=== PATIENT | male | born 1985 | race Caucasian/White ===

== ENCOUNTER 2016-06-08 07:13 | Emergency (ER) | payer SELFPAY ==
[2016-06-08 07:35] VITALS: BP 120/66
--- NOTE | 2016-06-08 08:07 | UC ---
Respiratory Complaint HPI - HPI Summary HPI Summary: 4 DAYS OF SUBJECTIVE FEVER, CHILLS, SWEATS, NASAL CONGESTION, COUGH. FEELS COMPLETELY RUN DOWN. NO FLU SHOT THIS SEASON. IS A SMOKER. TOOK DAYQUIL THIS MORNING. - History of Current Complaint Chief Complaint: UCGeneralIllness Stated Complaint: SORE THROAT FEVER SINUS ISSUE Time Seen by Provider: 06/08/16 07:49 Hx Obtained From: Patient Onset/Duration: Gradual Onset, Lasting Days, Still Present Timing: Constant Severity Initially: Moderate Severity Currently: Moderate Pain Intensity: 5 Pain Scale Used: 0-10 Numeric Character: Cough: Nonproductive Aggravating Factors: Nothing Alleviating Factors: Nothing Associated Signs And Symptoms: Positive: Fever, Chills, Nasal Congestion. Negative: Pleuritic Chest Pain, Wheezing, Hemoptysis, Hoarseness, Sinus Discomfort - Allergies/Home Medications Allergies/Adverse Reactions: Allergies Allergy/AdvReac Type Severity Reaction Status Date / Time No Known Allergies Allergy Verified 03/22/13 16:21 Home Medications: Home Medications Dextromethorphan HBr [Vicks Dayquil Cough] 06/08/16 [History] PMH/Surg Hx/FS Hx/Imm Hx Previously Healthy: Yes - Surgical History Surgical History: None - Family History Known Family History: Positive: Diabetes - Social History Alcohol Use: Occasionally Substance Use Type: None Smoking Status (MU): Current Every Day Smoker Review of Systems Constitutional: Fever, Chills, Fatigue ENT: Sore Throat, Nasal Discharge Respiratory: Cough Cardiovascular: Negative Gastrointestinal: Negative Musculoskeletal: Myalgia Neurological: Headache All Other Systems Reviewed And Are Negative: Yes Physical Exam Triage Information Reviewed: Yes Appearance: No Pain Distress, Well-Nourished, Ill-Appearing - MILDLY Vital Signs: Initial Vital Signs Temp 99.2 F 06/08/16 07:31 Pulse 83 06/08/16 07:31 Resp 18 06/08/16 07:31 BP 120/66 06/08/16 07:31 Pulse Ox 97 06/08/16 07:31 Vital Signs Reviewed: Yes Eyes: Positive: Conjunctiva Clear ENT: Positive: Hearing grossly normal, Pharynx normal, TMs normal Neck: Positive: Supple, Nontender, No Lymphadenopathy Respiratory Exam: Normal Cardiovascular Exam: Normal Abdomen Description: Positive: Soft Musculoskeletal: Positive: No Edema Neurological: Positive: Alert Psychological: Positive: Age Appropriate Behavior Skin: Negative: rashes UC Diagnostic Evaluation - Laboratory O2 Sat by Pulse Oximetry: 97 Diagnostic Studies Comment: RAPID FLU NEGATIVE Respiratory Course/Dx - Differential Dx/Diagnosis Provider Diagnoses: ACUTE VIRAL SYNDROME Discharge - Discharge Plan Condition: Stable Disposition: HOME Patient Education Materials: Viral Syndrome (ED) Forms: *Work Release Referrals: No Primary Care Phys,NOPCP [Primary Care Provider] - Additional Instructions: FLU TEST NEGATIVE. LIKELY A VIRAL INFECTION BUT GIVEN YOUR SYMPTOMS ARE WORSENING AND YOUR FEVER HAS BEEN PERSISTENT WILL COVER FOR BACTERIAL INFECTION WITH ANTIBIOTICS. TRY OTC AFRIN FOR NASAL CONGESTION. OKAY TO USE 2-3 SPRAYS IN EACH NOSTRIL UP TO 2 TIMES DAILY. DO NOT USE FOR MORE THAN 3-4 CONSECUTIVE DAYS TO PREVENT DEVELOPING REBOUND CONGESTION. CALL THE NUMBER BELOW FOR ASSISTANCE IN ESTABLISHING WITH A PCP An additional resource available to assist in finding the appropriate physician for your health care needs is the [facility] ([facility]). You may contact them by calling [phone].
== END 2016-06-08 08:50 | disposition home or self-care (01) ==
LOC: UCEAST 07:13
DX: B34.9 Viral infection, unspecified (principal); F17.210 Nicotine dependence, cigarettes, uncomplicated
CPT/HCPCS: 87502; 99211; G0463

== ENCOUNTER 2017-03-16 16:27 | Inpatient (IN) | payer SELFPAY ==
[2017-03-16 18:07] LABS: Hematocrit 46 % (42-52); Hemoglobin 15.3 g/dl (14.0-18.0); Mean Corpuscular HGB Conc 33 g/dl (31-36); Mean Corpuscular Hemoglobin 27 pg (27-31); Mean Corpuscular Volume 81 fL (80-94); Mean Platelet Volume 9 um3 (7.4-10.4); Platelet Count 196 10^3/ul (150-450); Red Blood Count 5.64 10^6/ul (4.0-5.4); Red Cell Distribution Width 17 % (10.5-15); White Blood Count 8.2 10^3/ul (3.5-10.8)
[2017-03-16 18:21] LABS: EGFR Non-African American 82.2 (>60)
--- NOTE | 2017-03-16 18:40 | ED ---
Marek Luna Angela, scribed for Elton Stack MD on 03/16/17 at 1704 . Psychiatric Complaint - HPI Summary HPI Summary: This pt is a 31 y/o male presenting to [facility] via EMS for depression and SI thoughts. Pt reports he punched a wall today. He is now complaining of right hand pain. Pt denies any drug or alcohol today. Per triage note, pt states he has had increased depression since his brother a year ago. - History Of Current Complaint Chief Complaint: EDMentalHealth Time Seen by Provider: 03/16/17 16:44 Hx Obtained From: Patient Onset/Duration: Lasting Days, Still Present Timing: Days Severity Currently: Moderate Character: Depressed Aggravating Factor(s): Recent Stress - brother Alleviating Factor(s): Nothing Associated Signs And Symptoms: Positive: Confused Has Suicidal: Reports: Thoughts. Denies: With A Plan Has Homicidal: Denies: Thoughts, With A Plan - Allergies/Home Medications Allergies/Adverse Reactions: Allergies Allergy/AdvReac Type Severity Reaction Status Date / Time No Known Allergies Allergy Verified 03/22/13 16:21 PMH/Surg Hx/FS Hx/Imm Hx Endocrine/Hematology History: Denies: Hx Diabetes Cardiovascular History: Denies: Hx Hypertension Respiratory History: Reports: Other Respiratory Problems/Disorders - DX WITH LATENT TB ABOUT 10 YRS AGO Infectious Disease History: No Infectious Disease History: Denies: Hx Tuberculosis - latent TB, Traveled Outside the [place] in Last 30 Days - Family History Known Family History: Positive: Diabetes - Social History Alcohol Use: Occasionally Substance Use Type: Reports: None Hx Tobacco Use: Yes Smoking Status (MU): Current Every Day Smoker Review of Systems Negative: Fever, Chills Musculoskeletal: Other - right hand pain Psychological: Other - SI thoughts Positive: Depressed All Other Systems Reviewed And Are Negative: Yes Physical Exam - Summary Physical Exam Summary: General: well-appearing, no pain distress Skin: warm, color reflects adequate perfusion, dry Head: normal Eyes: EOMI, CHUY ENT: normal Neck: supple, nontender Respiratory: CTA, breath sounds present Cardiovascular: RRR Abdomen: soft, nontender Bowel: present Musculoskeletal: normal, strength/ROM intact Neurological: normal, sensory/motor intact, A&O x3 Psychological: affect/mood appropriate Triage Information Reviewed: Yes Vital Signs On Initial Exam: Initial Vitals Temp Pulse Resp BP Pulse Ox 99.1 F 61 18 117/68 95 03/16/17 16:30 03/16/17 16:30 03/16/17 16:30 03/16/17 16:30 03/16/17 16:30 Vital Signs Reviewed: Yes - Holcomb Coma Scale Coma Scale Total: 15 Diagnostics - Vital Signs Vital Signs Temp Pulse Resp BP Pulse Ox 03/16/17 16:30 99.1 F 61 18 117/68 95 - Laboratory Lab Results: Lab Results 03/16/17 03/16/17 Range/Units 17:40 17:40 WBC 8.2 (3.5-10.8) 10^3/ul RBC 5.64 H (4.0-5.4) 10^6/ul Hgb 15.3 (14.0-18.0) g/dl Hct 46 (42-52) % MCV 81 (80-94) fL MCH 27 (27-31) pg MCHC 33 (31-36) g/dl RDW 17 H (10.5-15) % Plt Count 196 (150-450) 10^3/ul MPV 9 (7.4-10.4) um3 Neut % (Auto) Pending Lymph % (Auto) Pending Mcclain % (Auto) Pending Eos % (Auto) Pending Baso % (Auto) Pending Absolute Neuts (auto) Pending Absolute Lymphs (auto) Pending Absolute Monos (auto) Pending Absolute Eos (auto) Pending Absolute Basos (auto) Pending Absolute Nucleated RBC Pending Nucleated RBC % Pending Sodium 138 (133-145) mmol/L Potassium 4.4 (3.5-5.0) mmol/L Chloride 106 (101-111) mmol/L Carbon Dioxide 28 (22-32) mmol/L Anion Gap 4 (2-11) mmol/L BUN 21 (6-24) mg/dL Creatinine 1.04 (0.67-1.17) mg/dL Est GFR ( Amer) 105.8 (>60) Est GFR (Non-Af Amer) 82.2 (>60) BUN/Creatinine Ratio 20.2 H (8-20) Glucose 81 (70-100) mg/dL Calcium 10.0 (8.6-10.3) mg/dL Total Bilirubin 0.60 (0.2-1.0) mg/dL AST 17 (13-39) U/L ALT 14 (7-52) U/L Alkaline Phosphatase 77 (34-104) U/L Total Protein 7.5 (6.4-8.9) g/dL Albumin 4.7 (3.2-5.2) g/dL Globulin 2.8 (2-4) g/dL Albumin/Globulin Ratio 1.7 (1-3) TSH Pending Salicylates < 2.50 (<30) mg/dL Acetaminophen < 15 mcg/mL Serum Alcohol < 10 (<10) mg/dL Result Diagrams: 03/16/17 17:40 03/16/17 17:40 Lab Statement: Any lab studies that have been ordered have been reviewed, and results considered in the medical decision making process. Course/Dx - Course Course Of Treatment: Medications reviewed. MHE PENDING AT SHIFT CHANGE - Differential Dx/Clinical Impression Provider Diagnosis: Mental health problem Discharge - Discharge Plan Condition: Stable Disposition: OTHER Discharge Disposition Comment: . Referrals: No Primary Care Phys,NOPCP [Primary Care Provider] - The documentation as recorded by the Marek alcaraz Angela accurately reflects the service I personally performed and the decisions made by me, Elton Stack MD.
[2017-03-16 18:44] LABS: ABS Basophils 0 10^3/ul (0-0.2); ABS Eosinophils 0.1 10^3/ul (0-0.6); ABS Lymphocytes 2.1 10^3/ul (1.0-4.8); ABS Monocytes 0.6 10^3/ul (0-0.8); ABS Neutrophils 5.4 10^3/ul (1.5-7.7); ABS Nucleated RBC 0 10^3/ul; Eosinophil % 0.9 % (0-6); Lymphocyte % 26.1 % (25-47); Nucleated Red Blood Cells % 0.1
[2017-03-16 20:38] LABS: Urine Appearance Cloudy; Urine Blood Negative (Negative); Urine Color Yellow; Urine Ketones Negative (Negative); Urine Protein Negative (Negative); Urine Specific Gravity 1.032 (1.010-1.030); Urine Urobilinogen Negative (Negative)
--- NOTE | 2017-03-16 21:35 | ED ---
Kenn Luna Nikita, scribed for Evelyne Sosa MD on 03/16/17 at 2130 . Progress - Progress Note Progress Note: MHE at 2120. Pt will be admitted with Dx of SI and depression. Pt is agreeable with this plan. - Consult/PCP Time Called: 19:35 Course/Dx - Course Course Of Treatment: Medications reviewed. MHE PENDING AT SHIFT CHANGE - Diagnoses Provider Diagnoses: Mental health problem The documentation as recorded by the Kenn alcaraz Nikita accurately reflects the service I personally performed and the decisions made by Ian portillo Abdul, MD.
--- NOTE | 2017-03-17 07:44 | RAD ---
INDICATION: Right hand injury COMPARISON: None TECHNIQUE: AP, lateral, and oblique views were obtained. FINDINGS: There is no acute fracture or dislocation. There is soft tissue swelling over the dorsum of the hand. IMPRESSION: NO ACUTE FRACTURE.
[2017-03-17] MEDS ORDERED: Nicotine GUM* 2 MG PO PRN (12:42)
[2017-03-17] MEDS ORDERED: Mouth Piece, Nicotine* 1 EACH CARTRIDGE INH PRN ×2 (12:42)
[2017-03-17] MEDS: Nicotine PATCH 14 MG/24 HR* PATCH TRANSDERM SCH (13:20)
[2017-03-17] MEDS: Nicotine Inhaler* 10 MG AMP INH PRN ×2 (13:21→16:32)
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
[2017-03-17] MEDS: Nicotine Patch Removal NOTE FOLLOW UP SCH (20:49)
[2017-03-18] MEDS: Nicotine PATCH 14 MG/24 HR* PATCH TRANSDERM SCH (09:36)
--- NOTE | 2017-03-18 11:41 | PN ---
MHU: Group Therapy Note - Service Type Service Type: 08997 Group Psychotherapy - Cognitive Behavioral Group Therapy ( CBT):Patient was attentive and participatory in CBT programming this morning, and remained in good behavioral control. Patient expressed positive insights regarding relevant treatment interventions and goals.
[2017-03-18] MEDS ORDERED: hydrOXYzine HCL TAB* 50 MG PO PRN (14:35)
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
[2017-03-18] MEDS: Nicotine Patch Removal NOTE FOLLOW UP SCH (20:13)
[2017-03-19] MEDS: Nicotine PATCH 14 MG/24 HR* PATCH TRANSDERM SCH (09:48)
[2017-03-19] MEDS: Nicotine Inhaler* 10 MG AMP INH PRN (14:27)
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
[2017-03-19] MEDS: Nicotine Patch Removal NOTE FOLLOW UP SCH (21:20)
[2017-03-20] MEDS: Nicotine PATCH 14 MG/24 HR* PATCH TRANSDERM SCH (08:28)
[2017-03-20] MEDS: Nicotine Inhaler* 10 MG AMP INH PRN (20:47)
[2017-03-20] MEDS: Nicotine Patch Removal NOTE FOLLOW UP SCH (20:48)
[2017-03-21 07:58] VITALS: BP 122/67
[2017-03-21] MEDS: Nicotine PATCH 14 MG/24 HR* PATCH TRANSDERM SCH (08:38)
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
--- NOTE | 2017-03-22 17:10 | DS ---
CC: [facility] DISCHARGE SUMMARY: DATE OF ADMISSION: 03/16/17 DATE OF DISCHARGE: 03/21/17 SUPERVISING PSYCHIATRIST: Dr. Festus Banegas. DISCHARGE DIAGNOSES: 1. Adjustment disorder with mixed disturbance of mood and conduct. 2. Cannabis use disorder. 3. Tobacco use disorder. CONDITION AT TIME OF DISCHARGE: Improved. The patient is euthymic and with a bright affect. He rep orts that he is remorseful about having "a temper tantrum" after discharge was put on hold on Tuesday. He states that he benefitted from continued admission and was able to gain much from programming ov er the weekend. He is able to articulate coping skills that he used when upset and is hopeful to be a ble to use these after discharge as well. The patient states that he intends to refrain from marijua na and tobacco use. He reports desire for nicotine inhaler prescriptions. Denies other nicotine rep lacement. He denies need for medication for marijuana use. The patient states looking forward to st arting therapy at [facility] and states that he wants to target anger management. He states that his girlfriend may also be attending counseling as well. He states intent to return t [employer] to talk with the senior technical manager and ask for a letter that denotes he is no longer employed, so that he can have Medicaid instated. MENTAL STATUS EXAM: The patient is well groomed, dressed in his own clothing. He is thin framed and appears stated age. He is cooperative and sits in chair across from sports book writer. He answers questions f ully. He is alert and oriented x3. Concentration is good. His memory is 3/3. His mood is "good." His affect is congruent. Speech is normal in rate, rhythm, and volume. Thought process is logical a nd coherent. Thought content is negative for SI, SIB urges, HI, or . His insight is good. His jun gment is good. His fund of knowledge is adequate. DISCHARGE INSTRUCTIONS GIVEN TO THE PATIENT: A. Medications: Nicotine inhaler 10 mg q.2 hours p.r.n . The above prescription was electronically prescribed to [facility] pharmacy per the patient's request . B. Diet: Regular. C. Ambulation as tolerated. Tobacco cessation provided to the patient. There are no pending studie s at time of discharge. D. Followup care: The patient has been referred to the physician referral line and given the phone number to call for a primary care appointment. [facility], he has an intake fang mcclellan, 03/22/17, at 12:30 p.m. E. Substance abuse followup: The patient refused offer of substance use treatment referral or medic ations for cannabis use disorder. HOSPITAL COURSE: Part - A: Reason for admission: The patient presented to the emergency department after an argument with his girlfriend. He minimized suicidal ideation, but collateral information i ndicated he had made a recent suicidal gesture. The patient was admitted to the adult behavioral ser vices unit on 9.39 status. His code status was full. He was placed on safety checks every 15 minute s. He was encouraged to participate in supportive milieu, individual sessions with staff and psychoe ducational groups. The patient participated in programming. He denied need for antidepressants or p sychopharm. He endorsed primarily wanting to target anger management need for improved stress tolerance. The patient endorsed psychosocial stressors including financial strain, homelessness, and arguments with his current girlfriend. The following day, the patient reported readiness for being discharged. He reported improved sleep, improved mood, denied suicidal ideation. Discharge planning was in place due to Social Work received collateral information that the patient was expressing suicidal ideation the day before. The patien t's girlfriend was also concerned about recent rage and the patient's inability to tolerate stress. When Social Work and sports book writer presented the patient with this information, he was irritable and shut do wn. He was in behavioral control and declined to discuss further. He went to his room. Today, he t ells me that he punched his hand and cried, then tried some deep breathing and rejoined groups. The patient was validated for his healthy coping behaviors and encouraged to continue to practice these a fter discharge. The patient reports readiness for discharge. As stated above, he states that he gai sejal much from hospital admission. He denies suicidal ideation. He is forward thinking and has many goals, short term and retirement. Collateral was obtained from the patient's girlfriend that they had positive visits over the weekend and she is agreeable with discharge plan. The patient continues to report readiness for discharge and he denies risk for self-harm. He is hoping to move forward with o btaining Medicaid and continuing with mental health treatment at [facility]. The patient is aware of how to get a hold of the unit with questions and concerns after discharge. MENDEL WILLIAMSON, MILES [id number]/[facility] #: [id number]
== END 2017-03-21 16:40 | disposition home or self-care (01) | DRG 882 ==
LOC: ED 16:27 → BSU 23:16
PROVIDERS: ADMIT Psychiatry & Neurology Psychiatry; ATTEND Psychiatry & Neurology Psychiatry
DX: F43.25 Adjustment disorder with mixed disturbance of emotions and conduct (principal); F12.10 Cannabis abuse, uncomplicated; F17.210 Nicotine dependence, cigarettes, uncomplicated; F32.9 Major depressive disorder, single episode, unspecified; F43.10 Post-traumatic stress disorder, unspecified; Z62.810 Personal history of physical and sexual abuse in childhood
CPT/HCPCS: 36415; 80053; 80307; 80320; 80329; 81003; 84443; 85025; 90853; 99222; 99232; 99238; A9270-GY; G0480

== ENCOUNTER 2017-04-19 12:32 | Emergency (ER) | payer SELFPAY ==
[2017-04-19 12:47] VITALS: BP 126/59
--- NOTE | 2017-04-19 12:56 | UC ---
Respiratory Complaint HPI - HPI Summary HPI Summary: 31 yo male with fatigue /cough/myagias any runny nose SO just tested (+) for inluenza - History of Current Complaint Chief Complaint: UCGeneralIllness Stated Complaint: FLU SYMPTOMS Time Seen by Provider: 04/19/17 12:39 Hx Obtained From: Patient Onset/Duration: Gradual Onset, Lasting Days Timing: Constant Severity Currently: Moderate Pain Intensity: 4 Pain Scale Used: 0-10 Numeric Character: Cough: Nonproductive Aggravating Factors: Nothing Alleviating Factors: Nothing Associated Signs And Symptoms: Positive: Nasal Congestion - Allergies/Home Medications Allergies/Adverse Reactions: Allergies Allergy/AdvReac Type Severity Reaction Status Date / Time No Known Allergies Allergy Verified 03/22/13 16:21 PMH/Surg Hx/FS Hx/Imm Hx Previously Healthy: Yes - Surgical History Surgical History: None - Family History Known Family History: Positive: Hypertension, Diabetes - Social History Alcohol Use: Occasionally Substance Use Type: Marijuana Substance Use Comment - Amount & Last Used: stats that he smokes marijuana as often as he can Smoking Status (MU): Heavy Every Day Tobacco Smoker Type: Cigarettes Have You Smoked in the Last Year: Yes Household Exposure Type: Cigarettes - Immunization History Most Recent Influenza Vaccination: has not received Most Recent Pneumonia Vaccination: has not received Review of Systems Constitutional: Chills, Fatigue Skin: Negative Eyes: Negative ENT: Nasal Discharge, Sinus Congestion Respiratory: Cough Cardiovascular: Negative Gastrointestinal: Negative Genitourinary: Negative Motor: Negative Neurovascular: Negative Musculoskeletal: Myalgia Neurological: Headache Psychological: Negative Is Patient Immunocompromised?: No All Other Systems Reviewed And Are Negative: Yes Physical Exam Triage Information Reviewed: Yes Appearance: Well-Appearing, No Pain Distress, Well-Nourished Vital Signs: Initial Vital Signs Temp 98.6 F 04/19/17 12:42 Pulse 60 04/19/17 12:42 Resp 16 04/19/17 12:42 BP 126/59 04/19/17 12:42 Pulse Ox 100 04/19/17 12:42 Eye Exam: Normal ENT: Positive: Hearing grossly normal, Pharynx normal, Nasal congestion, Uvula midline. Negative: Tonsillar swelling, Tonsillar exudate, Trismus, Muffled voice, Hoarse voice, Dental tenderness Neck: Positive: Supple, Nontender, No Lymphadenopathy Respiratory: Positive: Lungs clear, Normal breath sounds, No respiratory distress, No accessory muscle use Cardiovascular: Positive: RRR, No Murmur Musculoskeletal: Positive: ROM Intact, No Edema Neurological: Positive: Alert Psychological Exam: Normal Skin Exam: Normal UC Diagnostic Evaluation - Laboratory O2 Sat by Pulse Oximetry: 100 - normal/not hypoxic Respiratory Course/Dx - Differential Dx/Diagnosis Provider Diagnoses: influenza or influenza like illness Discharge - Discharge Plan Condition: Stable Disposition: HOME Prescriptions: Ibuprofen TAB* [Motrin TAB*] 600 mg PO Q6H PRN #60 tab PRN Reason: Pain Oseltamivir CAP* [Tamiflu CAP*] 75 mg PO BID #10 cap Patient Education Materials: Influenza (ED) Referrals: [facility] [place] PHYSICIAN REFERRAL [Outside] - If Needed (to help you find a primary care provider) Additional Instructions: recheck in one week if not better influenza or influenza like illness
== END 2017-04-19 13:23 | disposition home or self-care (01) ==
LOC: UCEAST 12:32
DX: J11.1 Influenza due to unidentified influenza virus with other respiratory manifestations (principal); F17.210 Nicotine dependence, cigarettes, uncomplicated
CPT/HCPCS: 99201; G0463

== ENCOUNTER 2017-08-11 10:21 | Emergency (ER) | payer OTHER ==
[2017-08-11 11:25] LABS: ABS Basophils 0 10^3/ul (0-0.2); ABS Eosinophils 0.2 10^3/ul (0-0.6); ABS Lymphocytes 2.3 10^3/ul (1.0-4.8); ABS Monocytes 0.6 10^3/ul (0-0.8); ABS Neutrophils 3.6 10^3/ul (1.5-7.7); ABS Nucleated RBC 0 10^3/ul; Eosinophil % 2.3 % (0-6); Hematocrit 44 % (42-52); Hemoglobin 14.4 g/dl (14.0-18.0); Lymphocyte % 33.8 % (25-47); Mean Corpuscular HGB Conc 33 g/dl (31-36); Mean Corpuscular Hemoglobin 27 pg (27-31); Mean Corpuscular Volume 81 fL (80-94); Nucleated Red Blood Cells % 0.2; Platelet Count 176 10^3/ul (150-450); Red Blood Count 5.38 10^6/ul (4.00-5.40); Red Cell Distribution Width 17 % (10.5-15); White Blood Count 6.7 10^3/ul (3.5-10.8)
[2017-08-11 11:43] VITALS: BP 113/67
--- NOTE | 2017-08-11 18:13 | ED ---
Kasandra Luna Simon, scribed for Danny Antony MD on 08/11/17 at 1108 . Skin Complaint - HPI Summary HPI Summary: This patient is a 32 year old M presenting to [facility] accompanied by with a chief complaint of chest/abd rash since 3 weeks ago, with some new spots 5 days ago. Endorses 2 tick bites last fall, general arthralgia/myalgia in triage. Denies pruritus and pain at rash sites. - History of Current Complaint Chief Complaint: EDRashSkinAbscess Time Seen by Provider: 08/11/17 10:27 Stated Complaint: RASH CHEST Hx Obtained From: Patient Onset/Duration: Started Weeks Ago - 3, Still Present Timing: Constant, Lasting Weeks Onset Severity: Mild Current Severity: Mild Pain Intensity: 4 Pain Scale Used: 0-10 Numeric Skin Location: Chest, Abdomen Character: Redness Aggravating Symptom(s): Nothing Alleviating Symptom(s): Nothing Associated Signs & Symptoms: Rash Related History: Possible Reaction to: Insect - tick - Additional Pertinent History Primary Care Physician: RUTH - Allergy/Home Medications Allergies/Adverse Reactions: Allergies Allergy/AdvReac Type Severity Reaction Status Date / Time No Known Allergies Allergy Verified 08/11/17 10:32 PMH/Surg Hx/FS Hx/Imm Hx Endocrine/Hematology History: Denies: Hx Diabetes Cardiovascular History: Denies: Hx Hypertension Respiratory History: Reports: Other Respiratory Problems/Disorders - DX WITH LATENT TB ABOUT 10 YRS AGO Sensory History: Denies: Hx Contacts or Glasses, Hx Legally Blind, Hx Hearing Aid Opthamlomology History: Denies: Hx Contacts or Glasses, Hx Legally Blind EENT History: Denies: Hx Deafness Psychiatric History: Reports: Hx Anxiety, Hx Depression, Hx Inpatient Treatment Denies: Hx Eating Disorder, Hx of Violent Episodes Against Others Infectious Disease History: No Infectious Disease History: Denies: Hx Tuberculosis - latent TB, Traveled Outside the [place] in Last 30 Days - Family History Known Family History: Positive: Hypertension, Diabetes - Social History Alcohol Use: Occasionally Substance Use Type: Reports: Marijuana Substance Use Comment - Amount & Last Used: stats that he smokes marijuana as often as he can Hx Tobacco Use: Yes Smoking Status (MU): Heavy Every Day Tobacco Smoker Type: Cigarettes Have You Smoked in the Last Year: Yes Review of Systems Negative: Fever Positive: Arthralgia, Myalgia Positive: Rash All Other Systems Reviewed And Are Negative: Yes Physical Exam - Summary Physical Exam Summary: Appearance: The patient is well-nourished in no acute distress and in no acute pain. Skin: The skin is warm and dry and skin color reflects adequate perfusion. A few small erythematous patches about 2-3 cm diameter, 2 patches had blanching in the centers. Erythema itself blanches poorly. HEENT: The head is normocephalic and atraumatic. The pupils are equal and reactive. The conjunctivae are clear and without drainage. Nares are patent and without drainage. Mouth reveals moist mucous membranes and the throat is without erythema and exudate. The external ears are intact. The ear canals are patent and without drainage. The tympanic membranes are intact. Neck: The neck is supple with full range of motion and non-tender. There are no carotid bruits. There is no neck vein distension. Respiratory: Chest is non-tender. Lungs are clear to auscultation and breath sounds are symmetrical and equal. Cardiovascular: Heart is regular rate and rhythm. There is no murmur or rub auscultated. There is no peripheral edema and pulses are symmetrical and equal. Abdomen: The abdomen is soft and non-tender. There are normal bowel sounds heard in all four quadrants and there is no organomegaly palpated. Musculoskeletal: There is no back tenderness noted. Extremities are non-tender with full range of motion. There is good capillary refill. There is no peripheral edema or calf tenderness elicited. Neurological: Patient is alert and oriented to person, place and time. The patient has symmetrical motor strength in all four extremities. Cranial nerves are grossly intact. Deep tendon reflexes are symmetrical and equal in all four extremities. Psychiatric: The patient has an appropriate affect and does not exhibit any anxiety or depression. Triage Information Reviewed: Yes Vital Signs On Initial Exam: Initial Vitals Temp Pulse Resp BP Pulse Ox 98.1 F 60 16 134/82 97 08/11/17 10:29 08/11/17 10:29 08/11/17 10:29 08/11/17 10:29 08/11/17 10:29 Vital Signs Reviewed: Yes Diagnostics - Vital Signs Vital Signs Temp Pulse Resp BP Pulse Ox 08/11/17 10:29 98.1 F 60 16 134/82 97 - Laboratory Lab Results: Lab Results 08/11/17 08/11/17 Range/Units 11:15 11:15 WBC 6.7 (3.5-10.8) 10^3/ul RBC 5.38 (4.00-5.40) 10^6/ul Hgb 14.4 (14.0-18.0) g/dl Hct 44 (42-52) % MCV 81 (80-94) fL MCH 27 (27-31) pg MCHC 33 (31-36) g/dl RDW 17 H (10.5-15) % Plt Count 176 (150-450) 10^3/ul MPV 9.0 (7.4-10.4) um3 Neut % (Auto) 54.1 (38-83) % Lymph % (Auto) 33.8 (25-47) % Roane % (Auto) 9.4 H (0-7) % Eos % (Auto) 2.3 (0-6) % Baso % (Auto) 0.4 (0-2) % Absolute Neuts (auto) 3.6 (1.5-7.7) 10^3/ul Absolute Lymphs (auto) 2.3 (1.0-4.8) 10^3/ul Absolute Monos (auto) 0.6 (0-0.8) 10^3/ul Absolute Eos (auto) 0.2 (0-0.6) 10^3/ul Absolute Basos (auto) 0 (0-0.2) 10^3/ul Absolute Nucleated RBC 0 10^3/ul Nucleated RBC % 0.2 Sodium 137 L (139-145) mmol/L Potassium 4.4 (3.5-5.0) mmol/L Chloride 105 (101-111) mmol/L Carbon Dioxide 27 (22-32) mmol/L Anion Gap 5 (2-11) mmol/L BUN 12 (6-24) mg/dL Creatinine 0.93 (0.67-1.17) mg/dL Est GFR ( Amer) 119.6 (>60) Est GFR (Non-Af Amer) 93.0 (>60) BUN/Creatinine Ratio 12.9 (8-20) Glucose 96 (70-100) mg/dL Calcium 9.3 (8.6-10.3) mg/dL Total Bilirubin 0.50 (0.2-1.0) mg/dL AST 59 H (13-39) U/L ALT 139 H (7-52) U/L Alkaline Phosphatase 79 (34-104) U/L C-Reactive Protein 4.47 (< 5.00) mg/L Total Protein 6.5 (6.4-8.9) g/dL Albumin 4.1 (3.2-5.2) g/dL Globulin 2.4 (2-4) g/dL Albumin/Globulin Ratio 1.7 (1-3) Result Diagrams: 08/11/17 11:15 08/11/17 11:15 Lab Statement: Any lab studies that have been ordered have been reviewed, and results considered in the medical decision making process. Course/Dx - Course Course Of Treatment: Mr. Rodgers presented to the emergency department with a three-week history of an intermittent rash as well as some systemic symptomatology. He does spend a good deal of time outdoors. His rash was atypical but did have a blanched center in 2 lesions. Lyme is certainly a possibility and I will treat him accordingly and encourage close follow-up. - Diagnoses Provider Diagnoses: Lyme disease Discharge - Sign-Out/Discharge Documenting (check all that apply): Discharge/Admit/Transfer - discharge - Discharge Plan Condition: Stable Disposition: HOME Prescriptions: DOXYcycline CAP(*) [DOXYcycline 100MG CAP(*)] 100 mg PO BID #28 cap Patient Education Materials: Lyme Disease (ED) Referrals: [facility] PHYSICIAN REFERRAL [Outside] - 2 Days No Primary Care Phys,NOPCP [Primary Care Provider] - Additional Instructions: RETURN TO EMERGENCY DEPARTMENT FOR ANY CHANGING OR WORSENING SYMPTOMS. - Billing Disposition and Condition Condition: STABLE Disposition: Home The documentation as recorded by the Kasandra alcaraz Simon accurately reflects the service I personally performed and the decisions made by me, Danny Antony MD.
== END 2017-08-11 11:41 | disposition home or self-care (01) ==
LOC: ED 10:21
DX: A69.20 Lyme disease, unspecified (principal); R21 Rash and other nonspecific skin eruption; F17.210 Nicotine dependence, cigarettes, uncomplicated
CPT/HCPCS: 36415; 80053; 85025; 86140; 87476; 87798; 99282

== ENCOUNTER 2018-06-28 13:41 | Emergency (ER) | payer OTHER ==
[2018-06-28] MEDS ORDERED: Ketorolac INJ* 60 MG/2 ML VIAL IM ONE (14:18)
[2018-06-28] MEDS ORDERED: Morphine PF AMP (1 MG/ML)* 10 MG/10 ML AMP IM ONE (14:18)
[2018-06-28] MEDS ORDERED: Diazepam TAB(*) 5 MG PO ONE ×2 (14:19→23:03)
--- NOTE | 2018-06-28 14:20 | ED ---
Back Pain - HPI Summary HPI Summary: Pt. is a 33 y.o male who presents to the ER for low back pain. Pt. states he was bending over to place a heavy pile of linens on a low shelf when he developed severe low back pain. Pain radiates to legs with tingling in left leg. Pt. states he is unable to ambulate secondary to pain. Pt. states he has a hx of intermittent back pain. Pt. denies bowel or bladder incontinence or retention. Symptoms are moderate in severity. Movement makes sxs worse. Nothing makes sxs better. - History of Current Complaint Chief Complaint: EDBackInjuryPain Stated Complaint: BACK PAIN PER EMS Time Seen by Provider: 06/28/18 13:53 Hx Obtained From: Patient Pain Intensity: 10 - Allergies/Home Medications Allergies/Adverse Reactions: Allergies Allergy/AdvReac Type Severity Reaction Status Date / Time No Known Allergies Allergy Verified 08/11/17 10:32 PMH/Surg Hx/FS Hx/Imm Hx Previously Healthy: Yes Endocrine/Hematology History: Denies: Hx Diabetes Cardiovascular History: Denies: Hx Hypertension Respiratory History: Reports: Other Respiratory Problems/Disorders - DX WITH LATENT TB ABOUT 10 YRS AGO Sensory History: Denies: Hx Contacts or Glasses, Hx Legally Blind, Hx Deafness, Hx Hearing Aid Opthamlomology History: Denies: Hx Contacts or Glasses, Hx Legally Blind Psychiatric History: Reports: Hx Anxiety, Hx Depression, Hx Inpatient Treatment Denies: Hx Eating Disorder, Hx of Violent Episodes Against Others Infectious Disease History: No Infectious Disease History: Denies: Hx Tuberculosis - latent TB, Traveled Outside the [place] in Last 30 Days - Family History Known Family History: Positive: Hypertension, Diabetes - Social History Occupation: Employed Full-time Lives: With Family Alcohol Use: Occasionally Substance Use Type: Reports: Marijuana Substance Use Comment - Amount & Last Used: occasionally Hx Tobacco Use: Yes Smoking Status (MU): Former Smoker Type: Cigarettes Have You Smoked in the Last Year: Yes Review of Systems Cardiovascular: Negative Respiratory: Negative Gastrointestinal: Negative Genitourinary: Negative Positive: Other - low back pain Positive: Paresthesia. Negative: Weakness, Numbness All Other Systems Reviewed And Are Negative: Yes Physical Exam Triage Information Reviewed: Yes Vital Signs On Initial Exam: Initial Vitals Temp Pulse Resp BP Pulse Ox 98.4 F 66 18 142/84 98 06/28/18 13:43 06/28/18 13:43 06/28/18 13:43 06/28/18 13:43 06/28/18 13:43 Vital Signs Reviewed: Yes Appearance: Positive: Pain Distress - Pt. lying on bed, tearful, appears in pain but nontoxic. SO present. Skin: Positive: Warm, Dry Head/Face: Positive: Normal Head/Face Inspection Eyes: Positive: Normal, EOMI Neck: Positive: Supple Abdomen Description: Positive: Other: - mild diffuse tenderness Musculoskeletal: Positive: Other - 5/5 strength in bilateral LEs with flexion and dorsiflexion. Normal pulses in all extremeties. Exam is limited secondary to pain. Diffuse low tenderness to lumbar spine. Neurological: Positive: Normal, CN Intact II-III Psychiatric: Positive: Affect/Mood Appropriate Diagnostics - Vital Signs Vital Signs Temp Pulse Resp BP Pulse Ox 06/28/18 13:43 98.4 F 66 18 142/84 98 - Laboratory Lab Statement: Any lab studies that have been ordered have been reviewed, and results considered in the medical decision making process. Back Pain Course/Dx - Course Course Of Treatment: Pt. presenting for severe low back pain. He is afebrile with stable VS. Pt. c/o tingling in left leg. He has no neurosensory deficits on exam. He has full strength in LEs. Will obtain ct scan for further evaluation. Pt. given morphine, valium and toradol. CT lumbar per radiology: IMPRESSION: 1. NO ACUTE OSSEOUS INJURY TO THE LUMBAR SPINE. 2. BILATERAL PARS DEFECTS AT L5. 3. DEGENERATIVE DISC DISEASE WITH A LEFT-SIDED DISC PROTRUSION AT L4-L5. On re-exam pt.'s pain was down to a 4/10. Tech attempted to ambulate pt. but he was unable to stand up straight and walk. Pt.'s pain is now exacerbated again. Rectal exam was performed and pt. noted to have normal sensation but zero rectal tone. Case discussed with Dr. Hernandez and will obtain lumbar MRI to evaluation for cord compression. Pt. will be signed out to Elieser Chris PA-C for MRI results and disposition. - Diagnoses Differential Diagnosis/HQI/PQRI: Positive: Cauda Equina Syndrome, Compressive Cord Syndrome, Fracture, Herniated Disc, Strain, Sprain Provider Diagnoses: Back pain, Decreased rectal sphincter tone Discharge - Sign-Out/Discharge Documenting (check all that apply): Sign-Out Patient Signing out patient TO: Elieser Chris Patient Received Moderate/Deep Sedation with Procedure: No - Discharge Plan Condition: Stable Referrals: No Primary Care Phys,NOPCP [Primary Care Provider] - - Billing Disposition and Condition Condition: STABLE
[2018-06-28] MEDS ORDERED: Morphine 4 MG/ML VIAL (1 ml) 4 MG/ML VIAL IM ONE (15:00)
[2018-06-28] MEDS ORDERED: Dexamethasone TAB* 4 MG PO ONE (17:07)
--- NOTE | 2018-06-28 23:05 | PN ---
Progress Note - Progress Note Date of Service: 06/28/18 Note: She signed out to me by Edmond CHERRY pending MRI of lumbar spine. Patient was complaining of acute back pain, was unable to ambulate even after medication. CT lumbar spine was remarkable only for slight protrusion of disc. However on physical exam patient had sensation but no rectal tone. MRI of Lumbar spine negative for acute process, positive for same disc protrusion. Patient currently ambulating in the ED upright. Has urinated. Denies incontinence. Denies loss of sensation or function in bilateral lower extremities. Discussed patient with Dr. Cobian who stated patient could be discharged home. Rx for Valium 5 mg by mouth and oxycodone 5 mg by mouth. Advised patient rest, no strenuous activity for a few days. Return to the ED for any new or worsening symptoms. Patient understands and improves with plan.
[2018-06-28 23:14] VITALS: BP 131/92
== END 2018-06-28 23:13 | disposition home or self-care (01) ==
LOC: ED 13:41
DX: M54.5 Low back pain (principal); M48.061 Spinal stenosis, lumbar region without neurogenic claudication; M51.36 Other intervertebral disc degeneration, lumbar region; K62.89 Other specified diseases of anus and rectum; R41.9 Unspecified symptoms and signs involving cognitive functions and awareness; F32.9 Major depressive disorder, single episode, unspecified; Z87.891 Personal history of nicotine dependence
CPT/HCPCS: 72131; 72148; 96372; 99282; A9270-GY; J1885; J2270; J2274; J8540

== ENCOUNTER 2018-07-29 23:11 | Emergency (ER) | payer OTHER ==
[2018-07-29 23:22] VITALS: BP 140/80
--- OUTSIDE RECORDS SUMMARY | 2018-07-29 23:25 | XMS REPORT | Continuity of Care Document ---
:1985 External Reference #:[id number] Author Name Treva Foster Care Team Providers Name Role Phone Patient's Choice Primary Care Physician Unavailable Payers Date Identification Numbers Payment Provider Subscriber Policy Number: [id number] Devan Rodgers Group Name: [id number] [address] PayID: [id number] [place] [address] PayID: [id number] Workers Compensation Tye Rodgers Problems Active Problems Provider Date Displacement of lumbar intervertebral disc Justin Cobian M.D. Onset: 2018 without myelopathy Dislocations/sprains/strains Justin Cobian M.D. Onset: 07/17/2018 Spasm Alen Bhat M.D. Onset: 09/20/2017 Dermatophytosis of the body Tomas Gómez MD Onset: 08/23/2017 Tobacco user Tomas Gómez MD Onset: 08/23/2017 Disease Tomas Gómez MD Onset: 08/23/2017 Increased frequency of urination Tomas Gómez MD Onset: 08/23/2017 Eruption Tomas Gómez MD Onset: 08/23/2017 Family History Date Family Member(s) Observation Comments Siblings 1 schizophrenia Siblings 2 heart failure/kidney disease Social History Type Date Description Comments Sex Unknown Marital Status Lives With Work Status Out due to injury [employer] ETOH Use Occasionally consumes alcohol Tobacco Use Start: Unknown End: Patient is a former Unknown smoker Recreational Drug Use Denies Drug Use Smoking Status Reviewed: 07/17/18 Patient is a former smoker Allergies, Adverse Reactions, Alerts Description No Known Drug Allergies Medications Active Medications SIG Qnty Indications Ordering Provider Date Metaxalone 1 twice a day as 60tabs M51.26 Justin Cobian, 07/17/2018 800mg needed M.D. Tablets Ibuprofen Unknown 600mg Tablets History Medications Ropinirole HCL take one tablet 30tabs M62.838 Alen Bhat, 2017 - 0.25mg by mouth 2 M.D. 07/17/2018 Tablets hours before bed , if not helping take 2 tabs daily. Gabapentin take 1 capsule 60caps M62.838 Alen Bhat, 10/18/2017 - 300mg by mouth at 5 M.D. 01/23/2018 Capsules pm and bedtime Gabapentin 1 cap hs x1 90caps M62.838 Alen Bhat, 09/20/2017 - 100mg week,then 2 cap M.D. 10/18/2017 Capsules hs x 1 week and then 3 cap hs Clotrimazole 1 tsp apply to 15gm B35.4 Smiley De La Rosadarci, 08/15/2017 - 1% Cream each affected DO 10/18/2017 area twice a day Doxycycline Hyclate 1 by mouth Unknown - twice a day end 08/23/[address] date 09/01/17 Acetaminophen 2 tablets by Unknown - 325mg mouth every 6 07/17/2018 Tablets hours as needed for pain/fever Metaxalone Unknown - 800mg 07/17/2018 Tablets Vital Signs Date Vital Result Comment 07/17/2018 9:50am Height 71 inches 5'11" Weight 179.00 lb BP Systolic Sitting 122 mmHg BP Diastolic Sitting 80 mmHg Pain Level 4 BMI (Body Mass Index) 25.0 kg/m2 01/23/2018 9:38am Height 70 inches 5'10" Weight 176.25 lb Heart Rate 86 /min BP Systolic 120 mmHg BP Diastolic 72 mmHg Body Temperature 98.1 F O2 % BldC Oximetry 97 % BMI (Body Mass Index) 25.3 kg/m2 10/18/2017 9:32am Height 70 inches 5'10" Weight 170.00 lb Heart Rate 83 /min BP Systolic Sitting 120 mmHg BP Diastolic Sitting 70 mmHg Body Temperature 96.4 F O2 % BldC Oximetry 97 % BMI (Body Mass Index) 24.4 kg/m2 09/20/2017 3:35pm Height 70 inches 5'10" Weight 162.00 lb Heart Rate 60 /min BP Systolic Sitting 116 mmHg BP Diastolic Sitting 75 mmHg Body Temperature 97.8 F O2 % BldC Oximetry 98 % BMI (Body Mass Index) 23.2 kg/m2 08/23/2017 1:54pm Weight 160.00 lb Heart Rate 48 /min BP Systolic Sitting 112 mmHg BP Diastolic Sitting 72 mmHg Respiratory Rate 16 /min Pain Level 0 O2 % BldC Oximetry 100 % 08/15/2017 1:38pm Weight 164.00 lb Heart Rate 54 /min BP Systolic Sitting 116 mmHg BP Diastolic Sitting 75 mmHg Respiratory Rate 18 /min Body Temperature 97.8 F Pain Level 2 O2 % BldC Oximetry 100 % Results Test Date Facility Test Result H/L Range Note Comp Metabolic Panel 09/22/2017 [facility] Sodium 138 mmol/L N 135-145 [address] [place] [address] [phone] Potassium 4.4 mmol/L N 3.5-5.0 Chloride 106 mmol/L N 101-111 Co2 Carbon Dioxide 24 mmol/L N 22-32 Anion Gap 8 mmol/L N 2-11 Glucose 89 mg/dL N 70-100 Blood Urea Nitrogen 16 mg/dL N 6-24 Creatinine 1.00 mg/dL N 0.67-1.17 BUN/Creatinine Ratio 16.0 N 8-20 Calcium 9.4 mg/dL N 8.6-10.3 Total Protein 6.8 g/dL N 6.4-8.9 Albumin 4.4 g/dL N 3.2-5.2 Globulin 2.4 g/dL N 2-4 Albumin/Globulin Ratio 1.8 N 1-3 Total Bilirubin 0.70 mg/dL N 0.2-1.0 Alkaline Phosphatase 82 U/L N 34-104 Alt 26 U/L N 7-52 Ast 24 U/L N 13-39 Egfr Non- 85.5 >60 Egfr 103.5 >60 1 Laboratory test 09/22/2017 [facility] Magnesium 2.1 mg/dL N 1.9-2.7 2 finding [address] [place] [address] [phone] Vitamin B12 And 09/22/2017 [facility] Vitamin B12 774 pg/mL N 180-914 3 Folate Serum [address] [place] [address] [phone] Folic Acid (Folate) 18.57 ng/mL >3.99 4 Lipid Profile 09/22/2017 [facility] Triglycerides 103 mg/dL 5 (Trig/Chol/HDL) [address] [place] [address] [phone] Cholesterol 171 mg/dL 6 HDL Cholesterol 49.6 mg/dL 7 LDL Cholesterol 101 mg/dL 8 Laboratory test 08/23/2017 [facility] Lyme Disease Negative Negative [address] [place] [address] [phone] Hemoglobin A1c (Glyco HGB) 5.3 % N 4.0-5.6 10 1 Because ethnic data is not always readily available, this report includes an eGFR for both -Americans and non- Americans. The National Kidney Disease Education Program (NKDEP) does not endorse the use of the MDRD equation for patients that are not between the ages of 18 and 70, are , have extremes of body size, muscle mass, or nutritional status, or are non- or non-. According to the National Kidney Foundation, irrespective of diagnosis, the stage of the disease is based on the level of kidney function: Stage Description GFR(mL/min/1.73 m(2)) 1 Kidney damage with normal or decreased GFR 90 2 Kidney damage with mild decrease in GFR 60-89 3 Moderate decrease in GFR 30-59 4 Severe decrease in GFR 15-29 5 Kidney failure <15 (or dialysis) 2 FASTING 12 HOUR 3 Normal Range 180 to 914 Indeterminate Range 145 to 180 Deficient Range <145 4 FASTING 12 HOUR 5 Desirable: <150 Borderline High: 150-199 High: 200-499 Very High: >500 6 Desirable: <200 Borderline High: 200-239 High: >239 7 Low: <40 Desirable: 40-60 High: >60 8 Desirable: <100 Near Optimal: 100-129 Borderline High: 130-159 High: 160-189 Very High: >189 9 No evidence of antibodies to B. burgdorferi detected. False negative results may occur in recently infected patients (<=2 weeks) due to low or undetectable antibody levels to B. burgdorferi. If recent exposure is suspected, a second sample should be collected and tested in 2-4 weeks. Test Performed by: [facility] [address] [place] [address] 10 Therapeutic target for the treatment of diabetes mellitus patients is <7% HBA1C, and in selective patients <6.0%. Please refer to [place] [employer] diabetic care guidelines for further information. Encounters Type Date Location Provider Dx Diagnosis Office Visit 01/23/2018 [facility] Internal Alen Bhat, M62.838 Other muscle 9:40a Medicine - [place] M.D. [address]asm [address] Office Visit 10/18/2017 [facility] Internal Alen Bhat, M62.838 Other muscle 9:40a Medicine - [place] M.D. [address]asm [address] Office Visit 09/20/2017 [facility] Internal Alen Perlita, M62.838 Other muscle 3:20p Medicine - [place] M.D. [address]asm [address] Z13.220 Encounter for screening for lipoid disorders Z00.01 Encounter for general adult medical exam w abnormal findings Z00.00 Encntr for general adult medical exam w/o abnormal findings Office Visit 08/23/2017 1:[facility]p [facility] Tomsa Gómez MD R21 Rash and other [facility] nonspecific skin eruption F17.210 Nicotine dependence, cigarettes, uncomplicated R35.0 Frequency of micturition R45.1 Restlessness and agitation B35.4 Tinea corporis Office Visit 08/15/2017 1:30p [facility] Smiley B35.4 Tinea corporis [facility] DO Jason Plan of Treatment Future Appointment(s):08/09/2018 1:10 pm - Justin Cobian M.D. at [facility]07/17/2018 - Justin Cobian M.D.S39.012A Strain of muscle, fascia and tendon of lower back, initM51.26 Other intervertebral disc displacement, lumbar regionNew Medication:Metaxalone 800 mg - 1 twice a day as neededFollow up:3 weeks
== END 2018-07-30 00:40 | disposition left against medical advice (07) ==
LOC: ED 23:11
DX: R07.89 Other chest pain (principal); R20.0 Anesthesia of skin; R00.1 Bradycardia, unspecified; Z53.21 Procedure and treatment not carried out due to patient leaving prior to being seen by health care provider
CPT/HCPCS: 93005

== ENCOUNTER 2019-04-29 21:49 | Emergency (ER) | payer SELFPAY ==
[2019-04-29 22:07] LABS: ABS Basophils 0.1 10^3/ul (0-0.2); ABS Eosinophils 0.2 10^3/ul (0-0.6); ABS Lymphocytes 2.7 10^3/ul (1.0-4.8); ABS Monocytes 0.8 10^3/ul (0-0.8); ABS Neutrophils 5.1 10^3/ul (1.5-7.7); Eosinophil % 2.1 %; Hematocrit 43 % (42-52); Hemoglobin 14.6 g/dL (14.0-18.0); Lymphocyte % 30.2 %; Mean Corpuscular HGB Conc 34 g/dL (31-36); Mean Corpuscular Hemoglobin 27 pg (27-31); Mean Corpuscular Volume 79 fL (80-94); Mean Platelet Volume 8.9 fL (7.4-10.4); Nucleated Red Blood Cells % 0.2; Platelet Count 237 10^3/uL (150-450); Red Blood Count 5.41 10^6 /uL (4.18-5.48); Red Cell Distribution Width 17 % (10-15); White Blood Count 8.8 10^3/uL (3.5-10.8)
[2019-04-29 22:13] LABS: INR 0.97 (0.82-1.09)
--- OUTSIDE RECORDS SUMMARY | 2019-04-29 22:21 | XMS REPORT | Summary of Care ---
:1985 Author Organization [facility] Address [address] [place] [address] Care Team Providers Name Role Phone Tan Schilling MD Primary Care Provider Encounter Details Date Type Department Care Team Description 04/04/2019 Hospital Encounter [facility] Clinical Pathology at [facility] [address] [place] [address] Allergies Not on Filedocumented as of this encounter (statuses as of 04/05/2019) Medications Not on filedocumented as of this encounter (statuses as of 04/05/2019) Active Problems Not on filedocumented as of this encounter (statuses as of 04/05/2019) Social History Tobacco Use Types Packs/Day Years Used Date Never Assessed Sex Assigned at Date Recorded Not on file Job Start Date Occupation Industry Not on file Not on file Not on file Travel History Travel Start Travel End No recent travel history available. documented as of this encounter Last Filed Vital Signs Not on filedocumented in this encounter Plan of Treatment Name Type Priority Associated Diagnoses Date/Time Molecular Pathology and Routine 04/04/2019 5:43 Diagnostics, Cytology PM EST Genetics Name Type Priority Associated Order Schedule Diagnoses Molecular Pathology and Routine Once for 1 Diagnostics, Cytology Occurrences starting Genetics 04/04/2019 until 04/04/2019 Health Maintenance Due Date Last Done Comments MMR Vaccines (1 of 1 - Standard 05/21/1984 series) Varicella Vaccines (1 of 2 - 05/21/1984 2-dose childhood series) DTaP,Tdap,and Td Vaccines (1 - 05/21/1990 Tdap) HIV Screening 05/21/1996 Influenza Vaccine 11/28/2018 Pneumococcal Vaccine: 65+ Years (1 05/21/2048 of 2 - PCV13) HIB Vaccines Aged Out No longer eligible based on patient's age to complete this topic Hepatitis A Vaccines Aged Out No longer eligible based on patient's age to complete this topic Hepatitis B Vaccines Aged Out No longer eligible based on patient's age to complete this topic IPV Vaccines Aged Out No longer eligible based on patient's age to complete this topic Pneumococcal Vaccine: Pediatrics Aged Out No longer eligible based on (0 to 5 Years) and At-Risk patient's age to complete this Patients (6 to 64 Years) topic documented as of this encounter Results Not on filedocumented in this encounter
[2019-04-29 22:25] LABS: Albumin 4.6 g/dL (3.2-5.2); BUN/Creatinine Ratio 13.7 (8-20); Calcium 9.4 mg/dL (8.6-10.3); EGFR African American 100.6 (>60); EGFR Non-African American 83.1 (>60); Globulin 2.3 g/dL (2-4); Potassium 4.1 mmol/L (3.5-5.0); Total Bilirubin 0.3 mg/dL (0.2-1.0); Total Protein 6.9 g/dL (6.4-8.9)
[2019-04-29 22:27] LABS: Troponin I 0.01 ng/mL (<0.03)
--- NOTE | 2019-04-29 22:28 | ED ---
HPI Chest Pain - HPI Summary HPI Summary: Patient is a 33 y/o M arriving via ambulance to [facility] with cc of palpitations and chest pressure onset around 1900. He reports that he was sitting at rest when he suddenly felt pressure and fluttering palpitations in the chest. He then developed dizziness. His symptoms lasted for a few minutes before resolving. He has felt intermittent episodes lasting only a few seconds since the first episode. Last episode of CP around 730/8. He currently is not experiencing any palpitations or pain. He does not usually experience any CP, palpitations, or SOB with exertion. PMHx: latent TB. FHx: HTN. Former smoker, occasional EtOH, marijuana use. Medications reviewed. Allergies noted. - History of Current Complaint Chief Complaint: EDChestPainROMI Time Seen by Provider: 04/29/19 21:51 Hx Obtained From: Patient Onset/Duration: Started Hours Ago Time of Onset: 19:00 Timing: Intermittent, Lasting Minutes Initial Severity: Moderate Current Severity: None Pain Intensity: 0 Pain Scale Used: 0-10 Numeric Chest Pain Location: Diffuse Chest Pain Radiates: No Character: Fluttering, Pressure/Squeezing Aggravating Factor(s): Nothing Alleviating Factor(s): Nothing Associated Signs and Symptoms: Positive: Chest Pain, Dizziness, Palpitations - Additional Pertinent History Primary Care Physician: RUTH - Allergy/Home Medications Allergies/Adverse Reactions: Allergies Allergy/AdvReac Type Severity Reaction Status Date / Time No Known Allergies Allergy Verified 07/29/18 23:21 Home Medications: Home Medications NK [No Home Medications Reported] 04/29/19 [History Confirmed 04/29/19] PMH/Surg Hx/FS Hx/Imm Hx Endocrine/Hematology History: Denies: Hx Diabetes Cardiovascular History: Denies: Hx Hypertension, Hx Pacemaker/ICD Respiratory History: Reports: Other Respiratory Problems/Disorders - DX WITH LATENT TB ABOUT 10 YRS AGO Sensory History: Denies: Hx Contacts or Glasses, Hx Legally Blind, Hx Deafness, Hx Hearing Aid Opthamlomology History: Denies: Hx Contacts or Glasses, Hx Legally Blind Psychiatric History: Reports: Hx Anxiety, Hx Depression, Hx Inpatient Treatment Denies: Hx Eating Disorder, Hx Panic Disorder, Hx of Violent Episodes Against Others - Surgical History Surgical History: Yes Surgery Procedure, Year, and Place: T&A Infectious Disease History: No Infectious Disease History: Denies: Hx Tuberculosis - latent TB, Traveled Outside the [place] in Last 30 Days - Family History Known Family History: Positive: Hypertension, Diabetes - Social History Alcohol Use: Occasionally Hx Substance Use: Yes Substance Use Type: Reports: Marijuana Substance Use Comment - Amount & Last Used: occasionally Hx Tobacco Use: Yes Smoking Status (MU): Former Smoker Type: Cigarettes Have You Smoked in the Last Year: Yes Review of Systems Positive: Palpitations, Chest Pain Neurological/Mental Status: Other - dizziness All Other Systems Reviewed And Are Negative: Yes Physical Exam - Summary Physical Exam Summary: Constitutional: Well-developed, Well-nourished, Alert. (-) Distressed Skin: Warm, Dry HENT: Normocephalic; Atraumatic Eyes: Conjunctiva normal Neck: Musculoskeletal ROM normal neck. (-) JVD, (-) Stridor, (-) Nuchal rigidity Cardio: Rhythm regular, rate normal, Heart sounds normal; Intact distal pulses; Radial pulses are 2+ and symmetric. (-) Murmur Pulmonary/Chest wall: Effort normal. (-) Respiratory distress, (-) Wheezes, (-) Rales Abd: Soft, (-) tenderness, (-) Distension, (-) Guarding, (-) Rebound Musculoskeletal: (-) Edema Lymph: (-) Cervical adenopathy Neuro: Alert, Oriented x3 Psych: Mood and affect Normal Triage Information Reviewed: Yes Vital Signs On Initial Exam: Initial Vitals Temp Pulse Resp BP Pulse Ox 98.6 F 54 18 142/102 99 04/29/19 21:54 04/29/19 21:54 04/29/19 21:54 04/29/19 21:54 04/29/19 21:54 Vital Signs Reviewed: Yes Procedures - Sedation Patient Received Moderate/Deep Sedation with Procedure: No Diagnostics - Vital Signs Vital Signs Temp Pulse Resp BP Pulse Ox 04/29/19 21:54 98.6 F 54 18 142/102 99 - Laboratory Lab Results: Lab Results 04/29/19 04/29/19 Range/Units 21:57 21:58 WBC 8.8 (3.5-10.8) 10^3/uL RBC 5.41 (4.18-5.48) 10^6 /uL Hgb 14.6 (14.0-18.0) g/dL Hct 43 (42-52) % MCV 79 L (80-94) fL MCH 27 (27-31) pg MCHC 34 (31-36) g/dL RDW 17 H (10-15) % Plt Count 237 (150-450) 10^3/uL MPV 8.9 (7.4-10.4) fL Neut % (Auto) 57.5 % Lymph % (Auto) 30.2 % Simpson % (Auto) 8.7 % Eos % (Auto) 2.1 % Baso % (Auto) 1.5 % Absolute Neuts (auto) 5.1 (1.5-7.7) 10^3/ul Absolute Lymphs (auto) 2.7 (1.0-4.8) 10^3/ul Absolute Monos (auto) 0.8 (0-0.8) 10^3/ul Absolute Eos (auto) 0.2 (0-0.6) 10^3/ul Absolute Basos (auto) 0.1 (0-0.2) 10^3/ul Absolute Nucleated RBC 0.0 10^3/ul Nucleated RBC % 0.2 INR (Anticoag Therapy) 0.97 (0.82-1.09) Result Diagrams: 04/29/19 21:58 04/29/19 21:58 Lab Statement: Any lab studies that have been ordered have been reviewed, and results considered in the medical decision making process. - Radiology CXR Radiology Interpretation Completed By: ED Physician Summary of Radiographic Findings: No acute abnormality. ED physician has reviewed and interpreted this imaging scan. Pending official read. - EKG 2148 Cardiac Rate: Bradycardia - 56 BPM EKG Rhythm: Sinus Bradycardia EKG Comparison: No Significant Change - Compared to 07/29/2018 Summary of EKG Findings: An EKG at 2148 reveals sinus bradycardia at 56 BPM, T wave inversions in lead III. No STEMI. Compared to 07/29/2018, no significant change. ED physician has reviewed and interpreted this EKG. Re-Evaluation - Re-Evaluation First Eval Re-Evaluation Time: 23:30 Comment: Discussed results thus far and further plan for workup Second Eval Re-Evaluation Time: 00:15 Comment: Discussed results and plan for d/c. Trop neg x2 Chest Pain Course/Dx - Course Course Of Treatment: 33 y/o male p/w palpitations and CP now resolved. - VS bradycardic EKG sinus. Troponin negative, 2nd trop >3 hours after last CP also negative. - Patient remained CP free. CXR w/o PNA, PTX. No mediastinal widening , no tearing chest pain, do not suspect dissection. - d/w patient outpatient Holter if he is still feeling palpiations and stress test if recurrent CP. Suspect atypical CP. Heart score - HEART Score. Based on a HEART score of 1 the patient has a low risk (<2% chance) of major adverse cardiac event within the next 6 weeks. I explained to the patient that based on the work-up today, her risk of heart attack is low and that he/she will be discharged with outpatient follow-up. Strict return precautions were discussed regarding worsening chest pain, new / atypical pain, shortness of breath, or any other serious concerns. Patient endorsed understanding and has no questions at this time. - Diagnoses Provider Diagnoses: Palpitations, Chest pain Discharge ED - Sign-Out/Discharge Documenting (check all that apply): Patient Departure - Patient will be discharged home. - Discharge Plan Condition: Stable Disposition: HOME Patient Education Materials: Chest Pain (ED), Heart Palpitations (ED) Referrals: Tan Schilling MD [Primary Care Provider] - 3 Days Additional Instructions: You were seen in the emergency department for chest pain. Your EKG (heart tracing), labs and chest x-ray did not show any cause for pain. Important that you follow up with you primary care doctor in the next 1-2 days to help schedule an outpatient stress test. Please return to the emergency department for continued chest pain, trouble breathing, passing out, or if you're concerned. - Billing Disposition and Condition Condition: STABLE Disposition: Home - Attestation Statements Document Initiated by Reneibelieser: Yes Documenting Scribe: Janae Walker Provider For Whom Yulissa is Documenting (Include Credential): Dr. Vira Lynch MD Scribe Attestation: IJanae, jasieled for Dr. Vira Lynch MD on 04/30/19 at 0027. Scribe Documentation Reviewed: Yes Provider Attestation: The documentation as recorded by the Janae alcaraz accurately reflects the service I personally performed and the decisions made by me, Dr. Vira Lynch MD Status of Scribe Document: Viewed
[2019-04-30 00:20] VITALS: BP 118/68
== END 2019-04-30 00:25 | disposition home or self-care (01) ==
LOC: ED 21:49
DX: R00.2 Palpitations (principal); R07.89 Other chest pain; R42 Dizziness and giddiness; F41.9 Anxiety disorder, unspecified; F32.9 Major depressive disorder, single episode, unspecified; Z87.891 Personal history of nicotine dependence
CPT/HCPCS: 36415; 71046; 80053; 84484; 85025; 85610; 93005; 99282